=== PATIENT | male | born 1985 | race Hispanic/Latino ===

== ENCOUNTER 2022-12-08 22:14 | Emergency (ER) | payer OTHER ==
[2022-12-08 23:08] LABS: SARS-CoV-2 NAA Rapid Test Not Detected (NotDetected)
[2022-12-08] MEDS ORDERED: Acetaminophen 325 MG TAB ONE (23:09)
== END 2022-12-08 23:38 ==
LOC: EEVIPCON 22:14 → CSHERS 22:14
DX: S00.212A Abrasion of left eyelid and periocular area, initial encounter (principal); I10 Essential (primary) hypertension; E78.5 Hyperlipidemia, unspecified; Z20.822 Contact with and (suspected) exposure to COVID-19; W20.8XXA Other cause of strike by thrown, projected or falling object, initial encounter
CPT/HCPCS: 99283; U0002